=== PATIENT | female | born 1995 | race Caucasian/White ===

== ENCOUNTER 2022-06-24 11:23 | Emergency (ER) | payer OTHER, SELFPAY ==
[~2022-06-24] VITALS: Ht 170.2 cm; Wt 77.3 kg
[2022-06-24] MEDS ORDERED: BOOSTRIX VACCINE (TETANUS/DIPHTH/ACEL. PERTUSSIS) 0.5ML SYR IM ONE (12:35)
[2022-06-24 12:53] VITALS: BP 121/76
== END 2022-06-24 12:56 | disposition home or self-care (01) ==
LOC: M ED 11:23
DX: S80.811A Abrasion, right lower leg, initial encounter (principal); S80.11XA Contusion of right lower leg, initial encounter; W23.0XXA Caught, crushed, jammed, or pinched between moving objects, initial encounter; F10.10 Alcohol abuse, uncomplicated; Y99.0 Civilian activity done for income or pay; Z23 Encounter for immunization